=== PATIENT | female | born 1970 | race Caucasian/White ===

== ENCOUNTER → 2016-07-03 | Outpatient (CLI) | payer OTHER ==
--- NOTE | 2016-07-03 11:16 | MA ---
Screening Digital Mammogram with Digital Breast Tomosynthesis Clinical Indications: Routine screening. Technique: Standard cephalocaudal projections are obtained. Digital breast tomosynthesis was perform ed in the MLO projection with reconstruction at 1.0 mm slice thickness and composite MLO views recons tructed. This examination is processed by the CAD computer aided detection system. Comparison: July 02, 2015; June 27, 2014; and studies dating back to April 30, 2010. Breast density: D; The breasts are extremely dense, which lowers the sensitivity of mammography. Findings: CAD was reviewed. There are no new masses, new clusters of microcalcifications, or significant axillary lymphadenopathy . Impression: Negative mammogram. BI-RADS 1. Recommendation: Routine screening mammogram is recommended in one year. Dense mammographic pattern limits the sensitivity of mammography in this patient. If there is a clini frandy palpable abnormality, recommend additional imaging with ultrasound if clinically indicated. [facility] will send a result letter to the patient. Negative mammography should not preclude additional workup of a clinically suspicious finding. The patient's information is entered into a reminder system with a target due date for her next mammo gram.
== END ==
LOC: FIMAGING 08:32
DX: Z12.31 Encounter for screening mammogram for malignant neoplasm of breast (principal)
CPT/HCPCS: G0202

== ENCOUNTER → 2017-07-06 | Outpatient (CLI) | payer OTHER | LOC: FIMAGING 08:45 | PROVIDERS: ATTEND Family Medicine | DX: R51 Headache (principal); Z12.31 Encounter for screening mammogram for malignant neoplasm of breast ==

== ENCOUNTER 2017-11-17 16:18 | Emergency (ER) | payer OTHER ==
[2017-11-17] MEDS ORDERED: AMPICILLIN/SULBACTAM 3 GM in NS 100 ML IV ONE (16:43)
[2017-11-17] MEDS ORDERED: TDAP ADULT 0.5 ML INJ (BOOSTRIX) IM ONE (16:45)
--- NOTE | 2017-11-17 16:50 | EDPHY ---
HPI/HX/ROS/PE/MDM Narrative: CHIEF COMPLAINT:Dog bite HPI: The patient is a 47-year-old healthy female whose tetanus status is unknown. Two days ago she was accidentally bitten by her own dog to her left hand while attempting to break up a dog fight. Dog's immunizations are current. She denies fever. She complains of increasing pain and swelling to her left hand and wrist. She was able to squeeze a little pus out of the wounds yesterday. REVIEW OF SYSTEMS: Aside from elements discussed in the HPI, a comprehensive 10-point review of systems was reviewed and is negative. PMH: None significant. SOCIAL HISTORY: Denies alcohol or drug abuse. PHYSICAL EXAM: General:Patient is alert, in no acute distress. She is well-appearing. Skin: Normal color. No rash. Warm and dry. Extremities: Left hand: Two puncture wounds are present, one on the hypothenar eminence and one on lateral aspect of hand. No active discharge or apparent FB. Diffuse swelling and mild erythema are present both distally and approximately three inches proximal to the wrist joint, primarily on the volar surface. Pain is worse with pronation of arm, not with flexion or extension. Neuro: Oriented x3. Normal motor function. Normal sensory function. MDM: This patient presents with cellulitis after dog bite. She was treated with IV Unasyn and will be discharged with Augmentin. She will need close follow-up to ensure resolution. I see no signs of nec fasciitis, abscess, joint involvement or FB at this time. I discussed strict return precautions with the patient and marked the wound. - Data Points Imaging Results: Imaging Impressions Hand X-Ray 11/17/17 16:47 Impression: No evidence for fracture or radiopaque foreign body. Laboratory Results: Laboratory Results 11/17/17 16:50 11/17/17 16:50 WBC 12.46 10^3/uL H 10^3/uL (3.80-9.50) RBC 3.76 10^6/uL L 10^6/uL (4.18-5.33) Hgb 12.0 g/dL L g/dL (12.6-16.3) Hct 34.8 % L % (38.0-47.0) MCV 92.6 fL fL (81.5-99.8) MCH 31.9 pg pg (27.9-34.1) MCHC 34.5 g/dL g/dL (32.4-36.7) RDW 12.5 % % (11.5-15.2) Plt Count 264 10^3/uL 10^3/uL (150-400) MPV 9.6 fL fL (8.7-11.7) Neut % (Auto) 74.0 % % (39.3-74.2) Lymph % (Auto) 14.8 % L % (15.0-45.0) [place] % (Auto) 10.0 % % (4.5-13.0) Eos % (Auto) 0.6 % % (0.6-7.6) Baso % (Auto) 0.2 % L % (0.3-1.7) Nucleat RBC Rel Count 0.0 % % (0.0-0.2) Absolute Neuts (auto) 9.22 10^3/uL H 10^3/uL (1.70-6.50) Absolute Lymphs (auto) 1.84 10^3/uL 10^3/uL (1.00-3.00) Absolute Monos (auto) 1.25 10^3/uL H 10^3/uL (0.30-0.80) Absolute Eos (auto) 0.07 10^3/uL 10^3/uL (0.03-0.40) Absolute Basos (auto) 0.03 10^3/uL 10^3/uL (0.02-0.10) Absolute Nucleated RBC 0.00 10^3/uL 10^3/uL (0-0.01) Immature Gran % 0.4 % % (0.0-1.1) Immature Gran # 0.05 10^3/uL 10^3/uL (0.00-0.10) Medications Given: Discontinued Medications Diphtheria/Tetanus/Acell Pertussis (Boostrix) 0.5 ml IM .ONCE ONE Stop: 11/17/17 16:46 Last Admin: 11/17/17 17:09 Dose: 0.5 ml Ampicillin Sodium/Sulbactam (Sodium 3 gm/ Sodium Chloride) 100 mls @ 200 mls/ hr IV EDNOW ONE PRN Reason: Protocol Stop: 11/17/17 17:12 Last Admin: 11/17/17 17:01 Dose: 100 mls General Time Seen by Provider: 11/17/17 16:31 Initial Vital Signs: Initial Vital Signs Temperature (C) 37.0 C 11/17/17 16:29 Heart Rate 60 11/17/17 16:29 Respiratory Rate 20 11/17/17 16:29 Blood Pressure 160/84 H 11/17/17 16:29 O2 Sat (%) 97 11/17/17 16:29 O2 Delivery Mode Room Air Allergies/Adverse Reactions: sulfamethoxazole [From Bactrim] Allergy (Verified 11/17/17 16:52) trimethoprim [From Bactrim] Allergy (Verified 11/17/17 16:52) Home Medications: Medication Instructions Recorded Amoxicillin/Clavulanate Pot 875 mg PO BID #20 tab 11/17/17 [Augmentin 875Mg] Departure - Departure Disposition: Home, Routine, Self-Care Clinical Impression: Cellulitis and abscess of hand Dog bite Qualifiers: Encounter type: initial encounter Qualified Code(s): W54.0XXA - Bitten by dog, initial encounter Condition: Good Instructions: Cellulitis (ED) Additional Instructions: Follow-up with your primary doctor or the ER within 48 hours for a re-check of wound. Return to the ER for fever, worsening swelling, discharge from the wounds or other concerns. Referrals: Afua Santos MD [Primary Care Provider] - As per Instructions Prescriptions: Amoxicillin/Clavulanate Pot [Augmentin 875Mg] 875 mg PO BID #20 tab
[2017-11-17 16:57] LABS: PLATELET COUNT 264 10^3/uL (150-400)
[2017-11-17 17:53] VITALS: BP 123/75
== END 2017-11-17 17:51 | disposition home or self-care (01) ==
LOC: CED 16:18
DX: S61.452A Open bite of left hand, initial encounter (principal); L03.114 Cellulitis of left upper limb; L02.512 Cutaneous abscess of left hand; Z23 Encounter for immunization; W54.0XXA Bitten by dog, initial encounter
CPT/HCPCS: 73130-PO; 85025-PO; 96365; J0295

== ENCOUNTER 2017-11-18 21:20 | Inpatient (IN) | payer OTHER ==
[2017-11-18] MEDS ORDERED: PIPERACILLIN/TAZO 3.375 GM/DEX 50 ML IV ONE (22:26)
[2017-11-18 22:38] LABS: PLATELET COUNT 275 10^3/uL (150-400)
--- NOTE | 2017-11-18 22:48 | EDPHY ---
H & P Stated Complaint: dog bite inf yesterday abx started worsening swelling pain Time Seen by Provider: 11/18/17 22:02 HPI/ROS: HPI The patient presents with dog bite to left hand which occurred yesterday. She was seen at the [facility] ED and had IV Unasyn given. She was discharged on Augmentin and has taken 3 doses of this. Her symptoms have gotten worse with increased pain throughout her hand, wrist, forearm. She has noticed that the redness has spread to the mid forearm and now streaks to her elbow. She describes nausea and generalized malaise. She has not had any fevers or chills. Her pain is severe and she has been taking ibuprofen 600 mg with acetaminophen 1 g every 6 hr. She believes the dog did puncture her skin approximately 1 cm deep.. REVIEW OF SYSTEMS Constitutional: No fever, no chills. Eyes: No discharge. ENT: No sore throat. Cardiovascular: No chest pain, no palpitations. Respiratory: No cough, no shortness of breath. Gastrointestinal: No abdominal pain, no vomiting. Genitourinary: No hematuria. Musculoskeletal: No back pain. Skin: No rashes. Neurological: No headache. PMHx: Healthy Soc Hx: Here with her partner, nonsmoker PHYSICAL General Appearance: Alert, no distress Eyes: Pupils equal and round no pallor or injection ENT, Mouth: Mucous membranes moist Respiratory: There are no retractions, lungs are clear to auscultation Cardiovascular: Regular rate and rhythm Gastrointestinal: Abdomen is soft and non-tender, no masses, bowel sounds normal Neurological: A&O, moves all extremities Skin: Warm and dry, no rashes Musculoskeletal: Neck is supple non tender Extremities: Left hand with puncture wound on palmar surface of hand, 2nd puncture wound on radial aspect of wrist which is fluctuant, erythematous and tender to palpation, wrist is diffusely edematous with edema and redness that tract to the mid forearm, there is very faint lymphangitic streaking on the anterior surface of the proximal forearm, there is full range of motion of the digits and the wrist though limited by pain Psychiatric: Patient is oriented X 3, there is no agitation Source: Patient Exam Limitations: No limitations - Personal History LMP (Females 10-55): Irregular Current Tetanus/Diphtheria Vaccine: Yes Current Tetanus Diphtheria and Acellular Pertussis (TDAP): Yes - Medical/Surgical History Hx Asthma: No Hx Chronic Respiratory Disease: No Hx Diabetes: No Hx Cardiac Disease: No Hx Renal Disease: No Hx Cirrhosis: No Hx Alcoholism: No Hx HIV/AIDS: No Hx Splenectomy or Spleen Trauma: No Other PMH: none - Social History Smoking Status: Never smoked Constitutional: Initial Vital Signs Temperature (C) 37 C 11/18/17 21:26 Heart Rate 10 L 11/18/17 21:26 Respiratory Rate 18 11/18/17 21:26 Blood Pressure 148/80 H 11/18/17 21:26 O2 Sat (%) 97 11/18/17 21:26 O2 Delivery Mode Room Air Allergies/Adverse Reactions: sulfamethoxazole [From Bactrim] Allergy (Verified 11/17/17 16:52) trimethoprim [From Bactrim] Allergy (Verified 11/17/17 16:52) Home Medications: Medication Instructions Recorded Amoxicillin/Clavulanate Pot 875 mg PO BID #20 tab 11/17/17 [Augmentin 875Mg] Aviane-28 Tablet 11/18/17 Medical Decision Making Procedures: Bedside skin and soft tissue Ultrasound- performed and interpreted by me. Indication: Right wrist pain Findings: Small fluid collection extending to 1 cm, measuring about 1.5 cm in length below the skin surface which is well defined with no areas of vascularity , no cobblestoning, no foreign body Impression: Small fluid collection of the superficial radial left forearm Procedure regional anesthesia: Using direct ultrasound guidance, under sterile procedure, a 27 gauge syringe was inserted in the mid forearm on the radial aspect, 5 mL of lidocaine 1% without epinephrine was injected to the area adjacent to the radial nerve, patient tolerated the procedure well with no immediate complications. Procedure incision and drainage: The area overlying the radial puncture wound was cleansed with ChloraPrep. Using an 11 blade scalpel a stab wound was made into the pre-existing wound superficially. About 2 mL of whitish fluid was expressed. Patient tolerated the procedure well. Differential Diagnosis: This is a 47-year-old female who is suffered from a dog bite to her left hand and wrist yesterday, receiving a single dose of IV Unasyn and then 3 doses of Augmentin p. O. In the interim with increased pain, redness and swelling of her forearm and wrist. She is not systemically ill. On exam, she does have redness of the radial aspect of her wrist and hand with erythema that extends to the distal forearm, beyond the demarcated lines drawn yesterday. Her compartments are not tense, she has full range of motion of her hand and wrist with no coolness or numbness of the area. She does appear to have a newly formed abscess on the radial aspect of her wrist. Differential diagnosis includes hand cellulitis, hand abscess, less likely tenosynovitis. In the emergency department, IV line was established, blood cultures were drawn. She has a mild leukocytosis. She was given a dose of IV Zosyn after blood cultures were drawn. I performed incision and drainage of the wrist abscess and then packed the wound. She was seen by the hospitalist for admission given failure of outpatient antibiotics. She will be admitted overnight. If she is not improved , hand can be consulted in the morning. I do not think she has any need for emergent consult currently. - Data Points Laboratory Results: Laboratory Results 11/18/17 22:25 11/18/17 22:25 11/18/17 11/18/17 22:25 22:25 WBC 10.50 10^3/uL H 10^3/uL (3.80-9.50) RBC 3.65 10^6/uL L 10^6/uL (4.18-5.33) Hgb 11.4 g/dL L g/dL (12.6-16.3) Hct 33.8 % L % (38.0-47.0) MCV 92.6 fL fL (81.5-99.8) MCH 31.2 pg pg (27.9-34.1) MCHC 33.7 g/dL g/dL (32.4-36.7) RDW 12.4 % % (11.5-15.2) Plt Count 275 10^3/uL 10^3/uL (150-400) MPV 10.2 fL fL (8.7-11.7) Neut % (Auto) 69.4 % % (39.3-74.2) Lymph % (Auto) 18.1 % % (15.0-45.0) [place] % (Auto) 11.0 % % (4.5-13.0) Eos % (Auto) 0.9 % % (0.6-7.6) Baso % (Auto) 0.3 % % (0.3-1.7) Nucleat RBC Rel Count 0.0 % % (0.0-0.2) Absolute Neuts (auto) 7.29 10^3/uL H 10^3/uL (1.70-6.50) Absolute Lymphs (auto) 1.90 10^3/uL 10^3/uL (1.00-3.00) Absolute Monos (auto) 1.16 10^3/uL H 10^3/uL (0.30-0.80) Absolute Eos (auto) 0.09 10^3/uL 10^3/uL (0.03-0.40) Absolute Basos (auto) 0.03 10^3/uL 10^3/uL (0.02-0.10) Absolute Nucleated RBC 0.00 10^3/uL 10^3/uL (0-0.01) Immature Gran % 0.3 % % (0.0-1.1) Immature Gran # 0.03 10^3/uL 10^3/uL (0.00-0.10) Sodium 141 mEq/L mEq/L (135-145) Potassium 4.3 mEq/L mEq/L (3.3-5.0) Chloride 104 mEq/L mEq/L (97-110) Carbon Dioxide 26 mEq/l mEq/l (22-31) Anion Gap 11 mEq/L mEq/L (8-16) BUN 12 mg/dL mg/dL (7-23) Creatinine 0.6 mg/dL mg/dL (0.6-1.0) Estimated GFR > 60 Glucose 117 mg/dL H mg/dL (70-100) Calcium 9.7 mg/dL mg/dL (8.5-10.4) Departure - Departure Disposition: [facility] Inpatient Acute Clinical Impression: Cellulitis and abscess of hand Dog bite of hand Qualifiers: Encounter type: initial encounter Laterality: left Qualified Code(s): S61.452A - Open bite of left hand, initial encounter; W54.0XXA - Bitten by dog, initial encounter; W54.0XXA - Bitten by dog, initial encounter Condition: Fair Referrals: Afua Santos MD [Primary Care Provider] - As per Instructions
[2017-11-18] MEDS ORDERED: HYDROmorphONE/DILAUDID 2 MG/ML INJ IVP ONE (23:08)
[2017-11-18] MEDS ORDERED: LORazepam 0.5 MG TAB PO PRN (23:15)
--- NOTE | 2017-11-19 00:29 | PDGENHP ---
History and Physical - Chief Complaint Dog bite, left hand pain and swelling - History of Present Illness Source-patient provides history appears reliable. EMR reviewed and case discussed with ED provider. HPI-this is a very pleasant 47-year-old female without past medical history who presents to the emergency department today following a dog bite 2 days ago. Patient was evaluated [facility] yesterday following on a dog bite to the palmar surface of her left hand. Patient reports that she was attempting to break up a dog fight involving her dog and neighbor's dog. Patient's dog accidentally bit her on the hand. Patient's dog is up-to-date on vaccinations. Patient received her Tdap at [facility] yesterday. Patient was given a dose of IV Unasyn followed by oral Augmentin. Her wound was marked and patient developed increasing swelling pain and redness to her left lower hand and wrist. She had decreasing range of motion. She denies any associated fevers or chills. She did have slight nausea intermittently throughout the day but no vomiting. Patient also reports that she had increasing pain. She did have a follow-up appointment with her primary care provider at [place] tomorrow morning however given worsening erythema redness and swelling patient presented to the ED for evaluation. Patient reports that she has been compliant taking her Augmentin for 1 day. Additionally patient has noted some purulent drainage from the puncture sites. In the emergency department patient was noted to have increased pain swelling and she underwent an I&D. She had drainage of purulent fluid which was sent for culture. History Information - Allergies/Home Medication List Allergies/Adverse Reactions: sulfamethoxazole [From Bactrim] Allergy (Verified 11/17/17 16:52) trimethoprim [From Bactrim] Allergy (Verified 11/17/17 16:52) Home Medications: Aviane-28 Tablet 11/18/17 [Last Taken Unknown] I have personally reviewed and updated: family history, medical history, social history, surgical history - Past Medical History no pertinent PMH - Surgical History Reports: no pertinent surgical hx - Family History Positive for: hypertension (Mother) - Social History Smoking Status: Never smoked Alcohol Use: None Drug Use: None Additional social history: 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 Cor status-full. Review of Systems Review of Systems: ROS: 10pt was reviewed & negative except for what was stated in HPI & below Constitutional: Denies: chills, fever EENMT: Reports: no symptoms Cardiac: Reports: no symptoms Respiratory: Reports: no symptoms Gastrointestinal: Reports: nausea. Denies: vomitting Genitourinary: Reports: no symptoms Muscolosketal: Reports: other (Left hand and wrist pain with decreased range of motion.) Skin: Reports: other (See HPI) Neurological: Reports: numbness (Patient with some reported intermittent numbness tingling of the left 2nd finger.) Physical Exam Physical Exam: Selected Entries 11/18/17 21:26 Blood Pressure Automatic Method Heart Rate 10 L Respiratory 18 Rate O2 Sat (%) 97 Temperature (C) 37 C Blood Pressure 148/80 H Mean Arterial 102 H Pressure (MAP) O2 Delivery Room Air Mode Temperature Oral Source Temp Pulse Resp BP Pulse Ox 36.9 C 57 L 14 140/72 H 95 11/19/17 00:15 11/19/17 00:15 11/19/17 00:15 11/19/17 00:15 11/19/17 00:15 Constitutional: no apparent distress, other (NAD. Patient is sitting up on gurney. She appears ill but nontoxic. Slightly flushed. Friend at bedside.) Eyes: EOMI (Grossly intact), other (Pupils equal and round.), No scleral injection Ears, Nose, Mouth, Throat: moist mucous membranes, other (No nasal discharge.), No poor dentition Cardiovascular: regular rate and rhythym, no murmur, rub, or gallop, No systolic murmur, No edema Respiratory: no respiratory distress, no rales or rhonchi, clear to auscultation Gastrointestinal: normoactive bowel sounds, soft, non-tender abdomen, no palpable masses, No distension Genitourinary: no bladder tenderness, No ruelas in urethra Skin: warm, normal color, erythema (Left proximal hand and wrist particularly all along the palmar surface. There are puncture lesions present on medial palmar surface. New incision sites present.) Musculoskeletal: full muscle strength, pain with ROM (Left hand and wrist.), No normal joint ROM, No generalized weakness Neurologic: AAOx3, sensation intact bilaterally, other (Grossly nonfocal.), No facial droop Psychiatric: interacting appropriately, not anxious, not encephalopathic, thought process linear Lab Data & Imaging Review 11/18/17 22:25 11/18/17 22:25 WBC 10.50 10^3/uL (3.80-9.50) H 11/18/17 22: RBC 3.65 10^6/uL (4.18-5.33) L 11/18/17 22:25 Hgb 11.4 g/dL (12.6-16.3) L 11/18/17 22:25 Hct 33.8 % (38.0-47.0) L 11/18/17 22: MCV 92.6 fL (81.5-99.8) 11/18/17 22: MCH 31.2 pg (27.9-34.1) 11/18/17: MCHC 33.7 g/dL (32.4-36.7) 11/18/17: RDW 12.4 % (11.5-15.2) 11/18/17: Plt Count 275 10^3/uL (150-400) 11/18/17: MPV 10.2 fL (8.7-11.7) 11/18/17 22: Neut % (Auto) 69.4 % (39.3-74.2) 11/18/17 22: Lymph % (Auto) 18.1 % (15.0-45.0) 11/18/17 22: [place] % (Auto) 11.0 % (4.5-13.0) 11/18/17: Eos % (Auto) 0.9 % (0.6-7.6) 11/18/17: Baso % (Auto) 0.3 % (0.3-1.7) 11/18/17: Nucleat RBC Rel Count 0.0 % (0.0-0.2) 11/18/17: Absolute Neuts (auto) 7.29 10^3/uL (1.70-6.50) H 11/18/17 22: Absolute Lymphs (auto) 1.90 10^3/uL (1.00-3.00) 11/18/17 22:25 Absolute Monos (auto) 1.16 10^3/uL (0.30-0.80) H 11/18/17 22:25 Absolute Eos (auto) 0.09 10^3/uL (0.03-0.40) 11/18/17 22:25 Absolute Basos (auto) 0.03 10^3/uL (0.02-0.10) 11/18/17 22:25 Absolute Nucleated RBC 0.00 10^3/uL (0-0.01) 11/18/17 22:25 Immature Gran % 0.3 % (0.0-1.1) 11/18/17 22:25 Immature Gran # 0.03 10^3/uL (0.00-0.10) 11/18/17 22:25 Sodium 141 mEq/L (135-145) 11/18/17 22:25 Potassium 4.3 mEq/L (3.3-5.0) 11/18/17 22:25 Chloride 104 mEq/L (97-110) 11/18/17 22:25 Carbon Dioxide 26 mEq/l (22-31) 11/18/17 22:25 Anion Gap 11 mEq/L (8-16) 11/18/17 22:25 BUN 12 mg/dL (7-23) 11/18/17 22:25 Creatinine 0.6 mg/dL (0.6-1.0) 11/18/17 22:25 Estimated GFR > 60 11/18/17 22:25 Glucose 117 mg/dL (70-100) H 11/18/17 22:25 Calcium 9.7 mg/dL (8.5-10.4) 11/18/17 22:25 Assessment & Plan Assessment: 47-year-old female presents 2 days after a dog bite. Patient had received a dose of IV Unasyn followed by oral Augmentin with worsening swelling, redness and decreased range of motion of left hand and wrist. 1. Left hand cellulitis-related to dog bite. Patient on symptoms have worsened despite dose of IV Unasyn and oral Augmentin as prescribed for 24 hr. Patient has been started on Zosyn. She also went underwent I and D per the ER provider. Wound culture has been obtained as well as blood cultures. Patient does have significant swelling and decreased range of motion along with pain but she has excellent radial and ulnar pulses a good cap refill. Will continue with IV Zosyn at this time. Await cultures and adjust antibiotic therapy as per improvement and culture sensitivities. Patient already received her Tdap. Will monitor patient's swelling and range of motion closely. Consider consultation with Hand surgery if patient without improvement. 2. Dog bite 3. Leukocytosis-patient's WBC is was 12K at [facility] yesterday in his down trending to 10 Nicolasa. Will repeat CBC in the morning. Continue antibiotics as noted above. 3. Elevated blood pressures without history of hypertension. This is likely related to patient's acute pain. She will have oral and IV narcotic therapy available given extensive swelling and pain. FEN -will encourage oral hydration. Electrolytes are appropriate. Diet as tolerated. PPX-SCDs. Patient low risk for DVT. Will encourage mobilization and ambulation. Hold off on anticoagulation but consider if patient will require prolonged hospital stay. Cor status-full Disposition- patient admitted inpatient status on the medical floor. Given the extensive nature of her cellulitis and infection of her hand anticipate that she will require at least 2 days of IV antibiotics along with transition to oral antibiotics pending cultures and sensitivities.
[2017-11-19] MEDS: HYDROCODONE/APAP 5/325 TAB PO PRN ×3 (02:00→12:06)
[2017-11-19] MEDS: PIPERACILLIN/TAZO 3.375 GM/DEX 50 ML IV SCH ×2 (04:29→11:57)
[2017-11-19] MEDS: ACETAMINOPHEN 325 MG TAB PO PRN ×2 (04:33→07:54)
[2017-11-19 05:48] LABS: PLATELET COUNT 269 10^3/uL (150-400)
--- NOTE | 2017-11-19 08:23 | HOSPPROG ---
Hospitalist Progress Note Assessment/Plan: Left hand cellulitis (?tenosynovitis) 2/2 dog bite - wbc's trending down and erythema receding. Clinically, she has significant pain, especially with wrist ROM, concerning for tensynovitis or possible joint space involvement. No orgs on gram stain. Wound and blood cultures pending. -Needs surgical eval. Discussed with Dr. Ruiz, who referred me to Dr. Youssef ( behavioral modification assistant for hand/wrist). Phoned and paged Dr. Youssef to consult. -keep NPO for now -pain control: add IV toradol, prn norco, add prn dilaudid -Discussed with ID, change back to Unasyn Full code Dispo - cont inpt Subjective: Pt c/o severe pain in left wrist, worse with motion. Notes pus came out yesterday, no more drainage today. No fevers/chills. Ate at 11 am. Objective: Vital Signs Temp Pulse Resp BP Pulse Ox 36.7 C 56 L 16 125/73 H 95 11/19/17 07:31 11/19/17 07:31 11/19/17 07:31 11/19/17 07:31 11/19/17 07:31 Laboratory Results 11/19/17 05:39 11/18/17 11/19/17 11/20/17 05:59 05:59 05:59 Intake Total 150 Balance 150 - Physical Exam Constitutional: no apparent distress Eyes: PERRL Ears, Nose, Mouth, Throat: moist mucous membranes Cardiovascular: regular rate and rhythym Respiratory: no respiratory distress Gastrointestinal: normoactive bowel sounds, soft, non-tender abdomen Skin: warm Musculoskeletal: other (left wrist with focal erythema surrounding puncture wound on radial aspect of wrist, this has receded from line on forearm drawn yesterday, +martha and +pain with wrist extension / flexion, sensation intact. also puncture wound on hypothenar eminence ) Neurologic: AAOx3 Psychiatric: interacting appropriately ICD10 Worksheet Patient Problems: Problems Problem Status Onset Cellulitis and abscess of hand Acute Dog bite of hand Acute
[2017-11-19] MEDS: ONDANSETRON 4 MG/2 ML VIAL IVP PRN (09:27)
--- NOTE | 2017-11-19 11:19 | PDMN ---
Medical Necessity Medical necessity: Patient meets inpatient criteria per physician note and [facility] [place] [place] M -70 Cellulitis (failed O/P management dog bite: give IV Unasyn and oral Augmentin but had worsening redness, erythema, swelling, and pain with purulent drainage from puncture sites; I&D of wound in the ED/cultures pending; anticipated LOS > 2 midnights for ongoing IV antibiotics.)
--- NOTE | 2017-11-19 11:47 | ASMTCASEMG ---
Living Arrangements What is your living Answers: Alone arrangement? Who do you live with? Type Of Residence What kind of residence do Answers: House you live in? Discharge Plan Comments Coordination Status Comments Notes: CM spoke w/ RON Heath regarding d/c POC. Pt is a 47 y/o female admitted for hand cellulitis after she broke up a dog fight that her dog was in. Pt will remain inpatient and will be treated with iv zosyn. It is uncertain if pt will need ivabx. Needs are TBD at this time. CM to follow. Plan: TBD Date Signed: 11/19/2017 11:47 AM Electronically Signed By:MARLEY Moreno
[2017-11-19] MEDS ORDERED: HYDROmorphONE/DILAUDID 1 MG/ML INJ IVP PRN (13:57)
[2017-11-19] MEDS: KETOROLAC 30 MG/1 ML SDV IVP SCH ×3 (14:55→23:20)
--- NOTE | 2017-11-19 17:03 | GCON ---
[f rep st] CONSULTATION REFERRING PHYSICIAN: Estefani Barraza MD REASON FOR CONSULTATION: Left wrist infection. 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 She was breakin g up a dog fight on Wednesday and was bitten by a dog to her left hand. The hand began to swell over th e next 2 days. She was seen at [facility] ED on Wednesday, was given IV Unasyn and discharged on entin 6. She took several doses. The pain and swelling worsened and then last night she returned to the [facility] ER this time. She was having pain, swelling, and redness in the hand, wrist, and extending to the forearm. She had pain with movement of the wrist. In the ER, some purul ent material was expressed from the puncture wound over the radial aspect of her wrist. Despite the Unasyn, her pain has been worsening. I was consulted for possible surgical intervention. REVIEW OF SYSTEMS: Negative except for as noted above. PAST MEDICAL HISTORY: None. SOCIAL HISTORY: She does not smoke. PHYSICAL EXAM: GENERAL: Alert and oriented. No distress. MUSCULOSKELETAL: On the left wrist, the re are several superficial puncture wounds of the ulnar and palmar aspect of the hand. There appeare d to be healing. There is an open puncture wound at the radial aspect of the wrist, approximately ov er the radial styloid that appears to be draining purulent material. There is diffuse swelling of th e radial aspect of the wrist with a fluctuant area over the radial styloid. She is very tender to pa lpation over the erythematous and fluctuant area. She is not tender to palpation over the ulnar punc ture wounds. She does not have any pain to palpation of any of the flexor tendon sheaths of the thum b and other digits. She is able to make a fist. Her EPL and FPL functions are normal without any pa in. There is no pain in her MP and CMC joints to passive motion. There is minimal pain to her wrist with passive flexion extension. She has some pain over the radial aspect of the wrist with active s upination. She is not tender to palpation of the thenar eminence or the palmar aspect of the hand. There is some tenderness to palpation over the dorsal aspect of the wrist. There is pain with attemp pam radial deviation of the wrist. LABS: Her white count was 10.5 yesterday; it is 9.3 today. Her CRP is elevated at 168. ASSESSMENT/PLAN: Left wrist abscess with possible infectious tenosynovitis of the 1st dorsal compart ment of the wrist. The patient has worsening pain despite intravenous antibiotics. Incision and nina inage is indicated with possible involvement of the tendon sheath and an abscess due to a dog bite. I discussed with the patient and her significant other the risks and benefits of surgery. They under stood and wished to proceed. We will plan on urgent incision and drainage in several hours. /[id number]/MODL
[2017-11-19] MEDS: AMPICILLIN/SULBACTAM 3 GM in NS 100 ML IV SCH ×2 (17:47→23:18)
[2017-11-19] MEDS: LEVONORGESTREL ETHIN ESTRADIOL PO SCH ×2 (20:02→23:20)
[2017-11-19] MEDS ORDERED: NS 1,000 ML IV SCH (21:00)
[2017-11-19] MEDS ORDERED: LEVONORGESTREL ETHIN ESTRADIOL PO SCH (21:00)
[2017-11-19] MEDS ORDERED: LR 1,000 ML IV ONE (21:31)
[2017-11-19] MEDS ORDERED: BACITRACIN 50,000 UNITS/10 ML SYR IRR ONE ×2 (21:32→21:37)
[2017-11-19] MEDS ORDERED: BUPIVACAINE/EPI 0.5% 30 ML SDV ONE ×2 (21:32→21:37)
--- NOTE | 2017-11-19 21:34 | PDHPUP ---
History & Physical Update H&P update statement: This history and physical update is based on an assessment of the patient which was completed after admission or registration (within 24 hours), but prior to the surgery/procedure. H&P update: H&P reviewed & patient examined, no change in patient's condition since H&P completed
--- NOTE | 2017-11-19 21:39 | PDANEPAE ---
ANE Past Medical History - Pulmonary History Hx Oxygen in Use at Home: No Hx Sleep Apnea: No Sleep Apnea Screening Result - Last Documented: Negative - Endocrine History Hx Diabetes: No ANE Review of Systems Review of Systems: ANE Patient History - Allergies Allergies/Adverse Reactions: sulfamethoxazole [From Bactrim] Allergy (Verified 11/17/17 16:52) trimethoprim [From Bactrim] Allergy (Verified 11/17/17 16:52) - Home Medications Home Medications: Levonorgestrel-Ethin Estradiol [Aviane] 1 each PO HS 11/18/17 [Last Taken ] Acetaminophen [Tylenol 325mg (*)] 325 mg PO Q6 PRN 11/19/17 [Last Taken 03:00] - NPO status NPO Since - Liquids (Date): 11/19/17 NPO Since - Liquids (Time): 11:00 NPO Since - Solids (Date): 11/19/17 NPO Since - Solids (Time): 11:00 - Smoking Hx Smoking Status: Never smoked - Alcohol Use Alcohol Use: None ANE Labs/Vital Signs - Labs Result Diagrams: 11/19/17 05:39 11/18/17 22:25 - Vital Signs Blood Pressure: 133/77 Heart Rate: 57 Respiratory Rate: 16 O2 Sat (%): 95 Height: 175 cm Weight: 63 kg ANE Physical Exam - Airway Mallampati Score: Class 2 - ASA Status ASA Status: I, E ANE Anesthesia Plan Anesthesia Plan: MAC
[2017-11-19] MEDS ORDERED: MIDAZOLAM 2 MG/2 ML VIAL ONE (21:42)
[2017-11-19] MEDS ORDERED: PROPOFOL/EMULSION 500 MG/50 ML BOTTLE IV ONE (21:43)
[2017-11-19] MEDS ORDERED: fentaNYL 100 MCG/2 ML INJ ONE (21:43)
[2017-11-19] MEDS ORDERED: LR 500 ML IV PRN (22:50)
[2017-11-19] MEDS ORDERED: fentaNYL 100 MCG/2 ML INJ IVP PRN (22:50)
[2017-11-19] MEDS ORDERED: NALOXONE HCL 0.4 MG/ML INJ IVP PRN (22:50)
[2017-11-19] MEDS ORDERED: ONDANSETRON 4 MG/2 ML VIAL IVP PRN (22:50)
--- NOTE | 2017-11-19 22:51 | POSTANESTH ---
Post Anesthetic Evaluation Cardiovascular Status: Normal, Stable Respiratory Status: Normal, Stable Level of Consciousness/Mental Status: Can Participate in Eval Pain Control: Adequate, Prn Tx Ordered Nausea/Vomiting Control: Adequate, Prn Tx Ordered Complications Possibly Related to Anesthesia: None Noted
--- NOTE | 2017-11-20 03:14 | GOP ---
[f rep st] OPERATIVE REPORT DATE OF OPERATION: 11/19/2017 SURGEON: Mo Youssef MD ANESTHESIA: Local and MAC. Local was performed by mn. PREOPERATIVE DIAGNOSIS: Left wrist abscess, possible tenosynovitis. POSTOPERATIVE DIAGNOSIS: Left wrist abscess, impending deep space infection. PROCEDURE PERFORMED: Left wrist incision and drainage of left wrist abscess and possible deep space infection FINDINGS: ESTIMATED BLOOD LOSS: 5 cc. INDICATIONS: The patient is a 47-year-old female who was bitten by a large dog while trying to break up a fight between 2 dogs about 4 days prior on Wednesday. They found today that her wrist became more painful and swollen and erythematous and Wednesday, 2 days after the injury she was seen at a local ER. Antibiotics were given. The following day, despite IV antibiotics the pain was worsening and so she went to the [facility] ER. In the ER a small superficial I and D was performed with some drainage of p us from the area. She was placed on IV Unasyn. This morning I was consulted by the Internal Medicin e Service as her pain was persisting or worsening. I examined the patient and diagnosed her with lef t wrist abscess due to dog bite with possible tenosynovitis and possible deep space infection. She w as thus indicated for urgent I and D. Discussed with her the risks and benefits of this including pa in, bleeding, infection, damage to surrounding structures, nerve irritation, stiffness, weakness, nee d for further surgeries. She understood these risks and wished to proceed. DESCRIPTION OF PROCEDURE: The patient was seen in the preoperative holding area. She was given an o pportunity to ask questions. All questions were answered. Consent was signed. Surgical site was [facility]. She was transferred to operative suite on the [facility], care was taken to make sure that all bon y prominences were padded. A time-out was called including surgical and anesthesia teams confirming the surgical site and procedure to be performed. Prior to prepping I placed local 0.5% Marcaine with epinephrine around the intended incision area. She was then prepped and draped in the usual sterile fashion. The patient had already been on q.6 hours IV Unasyn and antibiotics were withheld. After prepping and draping, I extended her traumatic wound distally and proximally. Opened her up. During this time it was draining purulent material from that wound. I carefully opened her up to protect b ranches of the radial nerve. These were protected at all times. The patient appeared to have an abs cess cavity tracking deep to the radial aspect of the wrist, this was tracking quite deep adjacent to the carpus. She also had some tracking between the skin and extensor tendon surface of the dorsal a spect of the hand. The index and long finger in particular. I continued to explore the tendon sheat h of the 1st dorsal compartment was opened. There was some cloudy appearing material, however, there was no roman pus. The abscess cavity was tracking deep. I opened up part of the midcarpal joint ca psule. There did not appear to be any pus coming from there. I then irrigated copiously with steril e saline several liters. After this was done, a Bassam was placed into the wound. I closed the inc ision loosely with 4-0 nylon. Sterile dressing was applied. The patient tolerated the procedure wel l, was taken to PACU in stable condition. POSTOP CONDITION: Stable. POSTOPERATIVE PLAN: Patient will be admitted to the internal medicine service. She will be followed by the ID service and I will follow her on the floor. I will remove the [place] in about in about 2 days. Will then begin soaks. We will continue IV antibiotics and follow her cultures. Cultures we re taken today. /[id number]/MODL
[2017-11-20] MEDS: KETOROLAC 30 MG/1 ML SDV IVP SCH ×2 (05:29→11:43)
[2017-11-20] MEDS: AMPICILLIN/SULBACTAM 3 GM in NS 100 ML IV SCH ×3 (05:36→17:15)
[2017-11-20] MEDS: HYDROCODONE/APAP 5/325 TAB PO PRN ×4 (08:16→21:01)
[2017-11-20] MEDS: ONDANSETRON 4 MG/2 ML VIAL IVP PRN (08:30)
--- NOTE | 2017-11-20 09:30 | GCON ---
[f rep st] CONSULTATION INFECTIOUS DISEASE CONSULTATION DATE OF CONSULTATION: 11/20/2017 REFERRING PHYSICIAN: Estefani Barraza MD REASON FOR CONSULT: To assist in the management of this 47-year-old female status post dog bite to the left hand, now with tenosynovitis. HISTORY OF PRESENT ILLNESS: The patient is a 47-year-old female whose previous medical history is fairly underwhelming. Regarding her present issues, the patient states that Wednesday she was walking her dog on a trail. Her dog was on a leash (it is a Husky mix). The dog was involved in an altercation with another dog. She attempted to break this up, and her dog reached around and bit the palmar surface of her left hand. The patient's dog is up to date on his vaccinations. The patient states that she went home, washed the area with soap and water. She states that it bled a fair amount. She went to work on Wednesday and Wednesday, then on Wednesday, noticed that it was becoming erythematous and swelling significantly. She went to [facility] on Wednesday evening, where she received a Tdap and was given a dose of Unasyn and sent out on oral Augmentin. Patient states she took a dose of oral Augmentin, but unfortunately the area was becoming increasingly painful. Therefore, she presented to the emergency room for further evaluation and treatment. In the emergency room, the patient was afebrile. She was noted to have significant cellulitis and swelling of her hand to the mid forearm with faint lymphangitic streaking on the anterior surface of the proximal forearm. In the emergency room, under ultrasound guidance, the patient underwent bedside incision and drainage. 2 cc of whitish fluid was expressed. The culture was not set up anaerobically and is showing no growth so far. The Gram stain showed no polys and no organisms. She was admitted to the hospitalist service and started on Unasyn. Unfortunately, the area continued to progress and Dr. Youssef of Orthopedics was consulted. The patient was taken to the operating room last evening for operative incision and drainage. The operative note reports that she had an abscess cavity tracking deep to the radial aspect of the wrist and adjacent to the carpus. She also had tracking between the skin and extensor tendon sheath of the dorsal aspect of the hand, including the index and long finger. The tendon sheath of the 1st dorsal compartment was opened and murky fluid was expressed, although no roman pus per se. Again, it was noted that the abscess cavity tracked deep. The midcarpal joint capsule was opened and did not appear to be involved. The whole area was irrigated extensively. Cultures were sent and are pending. I am now asked to assist in her management. The patient is quite tired today and does have some pain in the left hand, but states that the erythema was already starting to improve yesterday prior to the operative intervention. REVIEW OF SYSTEMS: Is noted for nausea, no vomiting, and left hand pain. Otherwise, 10 systems are reviewed and all are negative. PREVIOUS MEDICAL HISTORY: Underwhelming. PREVIOUS SURGICAL HISTORY: Negative. VACCINATIONS: The patient received a Tdap on November 18. Her previous Tdap to that was unknown. ALLERGIES: Sulfa caused itching on her palms, but no roman rash. SOCIAL HISTORY: The patient lives in [place]. 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 No tobacco, alcohol or any illicit substances. No recent travel. She is right-handed. FAMILY HISTORY: Not contributory. PHYSICAL EXAMINATION: T current 36.9, T-max 36.9, heart rate 59, blood pressure 104/67. GENERAL: Thin female, sitting in chair, no apparent distress. HEENT: Atraumatic, normocephalic. Pupils equal, round, react to light. Extraocular movements are intact. No conjunctival injection, icterus, or petechiae. Mucous membranes moist. No oral lesions noted. Dentition in excellent repair. NECK: No thyromegaly or palpable thyroid nodules. No cervical or supraclavicular lymphadenopathy. CARDIOVASCULAR: S1, S2. No rubs , gallops, or murmurs. LUNGS: No increased respiratory effort. Clear to auscultation bilaterally, with no rales, rhonchi, or wheeze. ABDOMEN: Soft. No organomegaly or tenderness to palpation. EXTREMITIES: Right upper extremity is within normal limits. Left upper extremity is notable for a primary surgical dressing. It is in place. The fingers are well perfused and without tingling or numbness. The hand appears slightly puffy. I did not take off the primary dressing. No evidence of osteoarthritis. SKIN: Warm and dry. No obvious rash. I did not take off the dressing on her left hand given that it is a primary dressing. NEUROLOGIC: No focal deficits. Alert and oriented x3. LABORATORY DATA: Microbiologic data as outlined above. Blood cultures are pending. White blood cell count of 9.8, down from 10.5; hematocrit 34; platelet count of 269. BUN and creatinine 12/0.6. C-reactive protein of 168. No radiographic data. IMPRESSION: 47-year-old female with left hand tenosynovitis, abscess and cellulitis after sustaining a dog bite. Suspect the usual polymicrobial pathogens are involved, including streptococci, Pasteurella canis, etc. The patient is a normal host, and her dog has been vaccinated. She received a tetanus booster, and no rabies prophylaxis is necessary. Explained to the patient that given tenosynovitis and deep space infection, she will need a minimum of 2 weeks of IV antibiotics as outlined below. PLAN: 1. Continue Unasyn for now; suspect we will change her antibiotic to Ertapenem upon discharge for ease of administration. 2. Continue arm elevation. 3. Appreciate Dr. Youssef's assistance. 4. Status post Tdap. 5. No rabies prophylaxis/immunoglobulin necessary whatsoever. 6. Check a test for completeness sake. Thank you very much for consulting Infectious Diseases. We will continue to follow this patient with you. /[id number]/MODL MTDD
--- NOTE | 2017-11-20 11:24 | ASMTCMCOM ---
CM Note CM Note Notes: Per ID, pt will need a minimum of 2 weeks IV ABX at d/c. Discussed options with pt and her boyfriend. She would like [facility] come [facility]. Explained first infusion process through Admissions. Pt may d/c tomorrow and start outpt infusion Wednesday at 10:00. ID informed. Date Signed: 11/20/2017 11:23 AM Electronically Signed By:NJ Avila
--- NOTE | 2017-11-20 11:50 | HOSPPROG ---
Hospitalist Progress Note Assessment/Plan: Left hand cellulitis / tenosynovitis 2/ dog bite - s/p I&D POD #1. No orgs on gram stain. Wound and blood cultures pending. -Dr Youssef following, to remove peyman drain and dressing change tomorrow -pain control: add IV toradol, prn norco, add prn dilaudid -Discussed with ID, cont Unasyn -will need 2 weeks IV atbx, likely transition to daily ertapenem at discharge -if BCx's remain neg, PICC tomorrow Full code Dispo - cont inpt Subjective: Pt doing ok, still with significant pain. No fevers. Taking po fine. Objective: Vital Signs Temp Pulse Resp BP Pulse Ox 36.3 C 60 12 159/90 H 93 11/20/17 08:00 11/20/17 08:00 11/20/17 08:00 11/20/17 08:00 11/20/17 08:00 Microbiology 11/19/17 22:20 Gram Stain - Final Wrist - Swab 11/18/17 23:20 Gram Stain - Final Hand - Swab Laboratory Results 11/19/17 05:39 11/19/17 11/20/17 11/21/17 05:59 05:59 05:59 Intake Total 150 750 Output Total 4 400 Balance 150 746 -400 - Physical Exam Constitutional: no apparent distress Eyes: PERRL Ears, Nose, Mouth, Throat: moist mucous membranes Cardiovascular: regular rate and rhythym Respiratory: no respiratory distress, clear to auscultation Gastrointestinal: normoactive bowel sounds, soft, non-tender abdomen Skin: warm Musculoskeletal: other (left wrist bandaged, distal ext with sensation intact, decreased edema) ICD10 Worksheet Patient Problems: Problems Problem Status Onset Cellulitis and abscess of hand Acute Dog bite of hand Acute
[2017-11-20] MEDS ORDERED: IBUPROFEN 600 MG TAB PO SCH (12:00)
[2017-11-20] MEDS: KETOROLAC 15 MG/1 ML SDV IVP SCH (17:12)
[2017-11-20] MEDS: LEVONORGESTREL ETHIN ESTRADIOL PO SCH (21:03)
--- NOTE | 2017-11-20 23:21 | SOAPPROG ---
SOAP Progress Note Assessment/Plan: Assessment: Plan: Subjective: Pt seen this afternoon. Pain increased overnight when local wore off, but now controlled. Some tingling in dorsal thumb. Moving fingers well. Moving thumb causes some pain Objective: Vital Signs Temp Pulse Resp BP Pulse Ox 36.6 C 54 L 16 124/76 H 93 11/20/17 23:05 11/20/17 23:05 11/20/17 23:05 11/20/17 23:05 11/20/17 23:05 Microbiology 11/19/17 22:20 Gram Stain - Final Wrist - Swab 11/18/17 23:20 Gram Stain - Final Hand - Swab Laboratory Results 11/19/17 05:39 11/19/17 11/20/17 11/21/17 05:59 05:59 05:59 Intake Total 150 750 750 Output Total 4 400 Balance 150 746 350 L wrist -dressing in place, no breakthrough -makes full fist -EPL and FPL intact, thumb extension mildly painful - Time Spent With Patient Time Spent With Patient: 10m ICD10 Worksheet Patient Problems: Problems Problem Status Onset Cellulitis and abscess of hand Acute Dog bite of hand Acute
[2017-11-21] MEDS: KETOROLAC 15 MG/1 ML SDV IVP SCH ×3 (01:00→12:12)
[2017-11-21] MEDS: AMPICILLIN/SULBACTAM 3 GM in NS 100 ML IV SCH ×2 (01:00→05:27)
[2017-11-21] MEDS: ONDANSETRON 4 MG/2 ML VIAL IVP PRN (05:33)
[2017-11-21 07:17] VITALS: BP 123/70
--- NOTE | 2017-11-21 11:22 | HOSPPROG ---
Hospitalist Progress Note Assessment/Plan: Left hand cellulitis / tenosynovitis 2/2 dog bite - s/p I&D POD #2. No orgs on gram stain. Wound and blood cultures pending. -Dr Youssef following, to remove peyman drain and dressing change today -pain control: IV toradol, prn norco, prn dilaudid -Discussed with ID, cont Unasyn -will need 2 weeks IV atbx, likely transition to daily ertapenem at discharge -plan for PICC prior to dc Full code Dispo - cont inpt Objective: Vital Signs Temp Pulse Resp BP Pulse Ox 37.1 C 66 14 123/70 H 94 11/21/17 07:16 11/21/17 07:16 11/21/17 07:16 11/21/17 07:16 11/21/17 07:16 Microbiology 11/19/17 22:20 Gram Stain - Final Wrist - Swab 11/18/17 23:20 Gram Stain - Final Hand - Swab Laboratory Results 11/19/17 05:39 11/20/17 11/21/17 11/22/17 05:59 05:59 05:59 Intake Total 750 1050 Output Total 4 400 Balance 741 979 ICD10 Worksheet Patient Problems: Problems Problem Status Onset Cellulitis and abscess of hand Acute Dog bite of hand Acute
--- NOTE | 2017-11-21 11:53 | PCMIDPN ---
Assessment/Plan: 1. Deep abscess volar aspect left hand/wrist after dog bite status post washout without operative or clinical findings consistent with tenosynovitis or septic arthritis of the wrist: I did not see the hand when she 1st presented, but after long discussion with Dr. Youssef, and the fact that he did not feel that the patient had tenosynovitis or septic arthritis of the wrist, will treat with another 8 days of oral antibiotics (Augmentin 875 p. O. Twice daily), or 10 days postoperatively. She does not have a cellulitic component, either. Before she leaves today, will give a dose of Ertapenem. She will then start oral Augmentin tomorrow morning, and already has this medication at home. (8 days worth). Will arrange for her to follow-up in our clinic in the next 48-72 hours. I gave the patient my card and all of her questions were answered. Over 25 min was spent with this patient today. Subjective: Was able to discuss this case in person with Dr. Youssef today. We saw the patient together. He reports that this was a localized abscess. When he opened the tendon sheath, he states there was no roman pus, and he really clinically did not feel the patient had a tenosynovitis. The carpal bones were also not involved and he did not feel that the this joint was involved, either. The patient does not want to be on IV antibiotics if this is not necessary. Please see discussion below. She feels better and would like to go home. Objective: Unasyn 3 g IV q.6 hours day 2 No fever Vital Signs Temp Pulse Resp BP Pulse Ox 37.1 C 66 14 123/70 H 94 11/21/17 07:16 11/21/17 07:16 11/21/17 07:16 11/21/17 07:16 11/21/17 07:16 Microbiology 11/19/17 22:20 Gram Stain - Final Wrist - Swab 11/18/17 23:20 Gram Stain - Final Hand - Swab Laboratory Results 11/19/17 05:39 11/20/17 11/21/17 11/22/17 05:59 05:59 05:59 Intake Total 750 1050 Output Total 4 400 Balance 746 650 C-Reactive Protein 128.5 mg/L (<10.0) H 11/21/17 04:35 Operative cultures are still pending - Physical Exam General Appearance: alert, no apparent distress Extremities: other (Left wrist, volar aspect with small incision with some minimal yesi-incisional erythema. I did take a picture of this. There is no discharge from the incision. The patient is able to flex her wrist without pain , and make a thumbs up sign without difficulty. Swelling is minimal.) ICD10 Worksheet Patient Problems: Problems Problem Status Onset Cellulitis and abscess of hand Acute Dog bite of hand Acute
[2017-11-21] MEDS ORDERED: ERTAPENEM 1 GM in NS 100 ML IV SCH (12:00)
--- NOTE | 2017-11-21 12:26 | SOAPPROG ---
SOAP Progress Note Assessment/Plan: Assessment: POD#2 s/p I&D L wrist -doing well today. Pain and motion improved. Swelling decreased. No purulent drainage. CRP dropping Plan: -discussed case with Dr. Milner. I think this was essentially a complicated abscess w/o involvement of a joint or tendon sheath. Will plan on oral treatment at home -I instructed her to begin soaks at home starting today -F/u with Dr. Youssef in 10 days -Appreciate care of ID and hospitalist teams 11/21/17 12:22 Subjective: Pain better today. Doing well this morning. Objective: Vital Signs Temp Pulse Resp BP Pulse Ox 37.1 C 66 14 123/70 H 94 11/21/17 07:16 11/21/17 07:16 11/21/17 07:16 11/21/17 07:16 11/21/17 07:16 Microbiology 11/19/17 22:20 Gram Stain - Final Wrist - Swab 11/18/17 23:20 Gram Stain - Final Hand - Swab Laboratory Results 11/19/17 05:39 11/20/17 11/21/17 11/22/17 05:59 05:59 05:59 Intake Total 750 1050 Output Total 4 400 Balance 746 650 L thumb/wrist -dressing removed.Bassam removed. Wound is clean with only serous drainage. Cellulitis resolved. Swelling decreased -PROM of wrist in mid-arc without pain -Passive thumb motion without pain ICD10 Worksheet Patient Problems: Problems Problem Status Onset Cellulitis and abscess of hand Acute Dog bite of hand Acute
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
== END 2017-11-21 14:19 | disposition home or self-care (01) | DRG 603 ==
LOC: F3E 11-19 00:06
PROVIDERS: ADMIT Family Medicine; ATTEND Family Medicine
PROC: 0H9EXZZ Drainage of Left Lower Arm Skin, External Approach (ICD-10-PCS; 2017-11-19)
PROC: 0J9H00Z Drainage of Left Lower Arm Subcutaneous Tissue and Fascia with Drainage Device, Open Approach (ICD-10-PCS; principal; 2017-11-19 19:00)
DX: L03.114 Cellulitis of left upper limb (principal); S61.552A Open bite of left wrist, initial encounter; Y93.K9 Activity, other involving animal care; L02.414 Cutaneous abscess of left upper limb
CPT/HCPCS: 96374; J0295; J1170; J1335; J1885; J2250; J2405; J2543; J2704; J3010

== ENCOUNTER → 2018-07-07 | Outpatient (CLI) | payer OTHER | LOC: FIMAGING 13:01 | PROVIDERS: ATTEND Family Medicine | DX: Z12.31 Encounter for screening mammogram for malignant neoplasm of breast (principal) ==